=== PATIENT | male | born 1935 | race African-American/Black ===

== ENCOUNTER 2022-06-08 05:57 | Emergency (ER) | payer MEDICARE, OTHER ==
[~2022-06-08] VITALS: Ht 193 cm; Wt 104.0 kg
[2022-06-08] MEDS ORDERED: cefTRIAXone 1GM/50ML D5W 50 ML IV ONE (07:00)
[2022-06-08] MEDS ORDERED: CLINDAMYCIN 600MG IV 50 ML IV ONE (07:00)
[2022-06-08 07:41] LABS: White Blood Cell 10.4 10^3/uL (4.4-10.8)
[2022-06-08 07:44] LABS: Basophils # (auto) 0 10 ^3/uL (0-0.2); Basophils % (auto) 0.2 % (0.0-2.0); Eosinophils # (auto) 0.1 10 ^3/uL (0-0.8); Eosinophils % (auto) 0.6 % (0.0-7.0); Hematocrit 41.1 % (41.0-53.0); Hemoglobin 13.6 g/dL (13.5-17.5); Lymphocytes # (auto) 0.9 10 ^3/uL (0.4-5.4); Lymphocytes % (auto) 8.8 % (10.0-50.0); Mean Corpuscular Hemoglobin 25.2 pg (28.0-32.0); Mean Corpuscular Hgb Conc. 33.1 g/dL (32.0-36.0); Monocytes # (auto) 0.6 10 ^3/uL (0-1.3); Monocytes % (auto) 5.3 % (0.0-12.0); Neutrophils # (auto) 8.8 10 ^3/uL (1.6-8.6); Neutrophils % (auto) 85.1 % (37.0-80.0); Red Cell Distribution Width 15.2 % (11.8-14.3)
[2022-06-08 07:48] LABS: Albumin 4.2 g/dL (3.4-5.0); BUN/Creatinine Ratio 11.5; Calcium 9.7 mg/dL (8.5-10.1); Potassium 4.4 mmol/L (3.5-5.1)
[2022-06-08 07:57] LABS: Bilirubin, Total 0.8 mg/dL (0.2-1.0)
[2022-06-08] MEDS ORDERED: IOHEXOL 350 MG/ML 100ML IJ ONE (12:08)
[2022-06-08 16:00] VITALS: BP 133/72
[2022-06-08] MEDS ORDERED: CLIN300C8 PO (16:28)
[2022-06-08] MEDS ORDERED: CEPH-510 PO (16:28)
== END 2022-06-08 16:15 | disposition home or self-care (01) ==
LOC: EDBD 05:57 → ER 05:57
DX: J69.0 Pneumonitis due to inhalation of food and vomit (principal); K21.9 Gastro-esophageal reflux disease without esophagitis; I10 Essential (primary) hypertension; Z90.89 Acquired absence of other organs; Z20.822 Contact with and (suspected) exposure to COVID-19
CPT/HCPCS: 36415; 71045; 71275; 80053; 83880; 84484; 85025; 85379; 87426; 96365; 96368; 99285; J0696; J3490; Q9967